=== PATIENT | male | born 1985 | race Caucasian/White ===

== ENCOUNTER 2017-08-01 06:32 | Emergency (ER) | payer SELFPAY ==
--- NOTE | 2017-08-01 07:59 | ER Report ---
History and Physical Time Seen By MD: 07:44 Hx. of Stated Complaint: Pt reporting right leg pain that centralizes to right upper buttock and thigh. Pt states he was running up and down stairs. Pt states right leg is not swollen and has no hx of blood clots. Pt denies falling. 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 Patient did not fall he did not strike anything. Patient was able to ambulate with pain. The pain is mostly mid right lateral thigh going up to the right hip. Patient notes he was not wearing his knee brace which he is supposed where with his PCL deficit. Yesterday he was able to work on ladders all day without problems and he also did some stairs. Today he was doing more walking/running on the stairs when this happened. Pain was instant and sharp and it felt like a tear. No bruising or disfigurement noted by the patient. REVIEW OF SYSTEMS: Constitutional: No fever, no chills. Eyes: No discharge. ENT: No sore throat. Cardiovascular: No chest pain, no palpitations. Respiratory: No cough, no shortness of breath. Gastrointestinal: No abdominal pain, no vomiting. Genitourinary: No hematuria. Musculoskeletal: No back pain. Right lateral hip to lateral thigh sharp pain. Began instantly while running and felt like sharp tear Skin: No rashes. Neurological: No headache. Allergies: Coded Allergies: No Known Drug Allergies (Unverified , 08/01/17) Home Meds No Active Prescriptions or Reported Meds Past Medical/Surgical History No known medical allergies No medications No illnesses No surgeries Reviewed Nurses Notes: Yes Hx Smoking: Yes Smoking Status: Current: Every Day Smoker Constitutional Vital Sign - Last 24 Hours 08/01/17 06:39 Temp 97.7 Pulse 95 Resp 20 B/P (MAP) 163/99 Pulse Ox 99 O2 Delivery Room Air Physical Exam General Appearance: [The patient is alert, has no immediate need for airway protection and no signs of toxicity.] [ ] Eyes: Pupils equal and round no pallor or injection. ENT, Mouth: Mucous membranes are moist. Respiratory: There are no retractions, lungs are clear to auscultation. Cardiovascular: Regular rate and rhythm. [ ] Gastrointestinal: Abdomen is soft and non tender, no masses, bowel sounds normal. Neurological: Alert and oriented in proper speed responding in his speech. Answers all questions appropriately and following all commands. No sensation to the tips of the toes. Skin: Warm and dry, no rashes. Musculoskeletal: Neck is supple non tender. Very loose anterior drawer sign right knee. Negative laxity to varus and valgus stress. Slight tenderness at the right hip joint but worsening tenderness as I palpate at the lateral hip down to the lateral thigh over the iliotibial band. No bruising or swelling or redness. Extremities are nontender, nonswollen and have full range of motion except as described. Normal capillary refill and DP pulses bilaterally. Normal range of motion at the toes, ankles, and knee but with laxity to the PCL right knee. No calf tenderness or swelling. No bruising noted. Tenderness at the lateral fibula condyle and it does hurt more when the knee is bent however he does have the PCL injury. He is not tender down around the knee however. DIFFERENTIAL DIAGNOSIS: After history and physical exam differential diagnosis was considered for right hip strain, right hip sprain, right hip fracture, iliotibial band tear. Medical Decision Making ED Course/Re-evaluation ED Course 08/01/2017 8:10:05 am suspect patient injured the iliotibial band on the right side. Ordered hip x-ray and will go from there. Patient is neurovascular intact to the tip of the toes with full range of motion of all extremities but with slowing and decreased range of motion at the right hip. 08/01/2017 8:17:59 am patient refuses hip x-ray. He would like doctor's note further injury is all. He does no other could be a small avulsion fracture but unlikely. Since this happened at the job site but still suggested. Decision to Disposition Date: Aug 01, 2017 Decision to Disposition Time: 08:19 Critical Care Time Will discharge patient with instructions about probable iliotibial band injury with strain. This is a workman's compensation injury and I will have their company follow-up with occupational health and suggestions before returning to work. Patient noted the company will do urine drug testing. Depart Departure Latest Vital Signs Vital Signs Date Time Temp Pulse Resp B/P (MAP) Pulse Ox O2 Delivery O2 Flow Rate FiO2 08/01/17 06:39 97.7 95 20 163/99 99 Room Air Impression: Primary Impression: Iliotibial band tendinitis of right side Additional Impression: Strain of muscle, fascia and tendon of right hip, initial encounter Condition: Condition Unchanged Disposition: HOME OR SELF-CARE New Scripts Ibuprofen (IBUPROFEN) 800 Mg Tablet 1 TAB PO Q8H Y for pain, #30 TAB 0 Refills Prov: HÉCTOR FU MD 08/01/17 Departure Forms: ER Transition Record, Medications Reconciliation, Off Work/ School Form, School or Work Release?: Work Number of days to be released: 2 Patient Portal Information Patient Instructions: Iliotibial Band Syndrome (ED) Additional Instructions: Usual ileal tibial band tendinitis or strain causes pain at the lateral knee. It also can happen at the lateral hip which is where yours is at. Ice to the area as well as warming up and stretching out before working his usual. Ibuprofen 800 mg 3 times a day. I suggest he follow-up with occupational medicine decided whether or not to follow-up with physical therapy or how to proceed. Workplace may have occupational medicine within the company or they may ask for referral. Need to be wearing your knee brace for your PCL laxity while at work. No work today so he can talk your company about the referral to occupational medicine/physical therapy, a few days off, or light duty. Problem Qualifiers HÉCTOR FU MD Aug 01, 2017 07:59
[2017-08-01 08:22] VITALS: BP 156/98
[2017-08-01] MEDS ORDERED: IBUP800T37 PO (08:24)
[2017-08-01] MEDS ORDERED: IBUPROFEN 800 MG TAB PO ONE (08:35)
== END 2017-08-01 08:39 | disposition home or self-care (01) ==
LOC: ER 06:46
DX: M76.31 Iliotibial band syndrome, right leg (principal); S76.011A Strain of muscle, fascia and tendon of right hip, initial encounter
CPT/HCPCS: 99282